=== PATIENT | male | born 1960 | race American Indian/Alaskan Native ===

== ENCOUNTER 2021-02-27 20:48 | Emergency (ER) | payer BC ==
[2021-02-27] MEDS ORDERED: SODIUM CHLORIDE 0.9% 500 ML 500 ML IV ONE (23:02)
--- NOTE | 2021-02-27 23:23 | XRay Report ---
CHEST - 1 VIEW INDICATION: Altered Mental Status COMPARISON: 10/08/2019 FINDINGS: SUPPORT DEVICES: Stable support device positioning. HEART: Stable cardiomediastinal silhouette. LUNGS/PLEURA: Clear lungs. ADDITIONAL FINDINGS: None. IMPRESSION: No acute abnormality. Signer Name: Felipe Alba MD Signed: 02/27/2021 11:19 PM Workstation Name: [id number]
[2021-02-28 00:21] LABS: Basophils % (Auto) 0.5 % (0.0-1.8); Eosinophils % (Auto) 0.1 % (0.0-4.3); Hemoglobin 13.2 gm/dl (11.8-15.2); Lymphocytes # (Auto) 0.9 K/mm3 (1.2-5.4); Lymphocytes % (Auto) 17.3 % (13.4-35.0); Mean Corpuscular HGB Conc 31 % (32-34); Mean Corpuscular Volume 82 fl (84-94); Monocytes # (Auto) 0.6 K/mm3 (0.0-0.8); Monocytes % (Auto) 11.7 % (0.0-7.3); Platelet Count 193 K/mm3 (140-440); Red Blood Count 5.15 M/mm3 (3.65-5.03); Red Cell Distribution Width 13.9 % (13.2-15.2)
[2021-02-28 00:42] LABS: Alanine Aminotransferase 25 units/L (7-56); Albumin 4.3 g/dL (3.9-5); BUN/Creatinine Ratio 14; Blood Urea Nitrogen 13 mg/dL (9-20); Calcium 8.8 mg/dL (8.4-10.2); Hemolysis Index 33
--- NOTE | 2021-02-28 00:53 | Cat Scan Report ---
CT head without contrast HISTORY: Altered Mental Status. TECHNIQUE: Axial imaging performed from the skull apex through the skull base without the use of con trast. All CT scans at this location are performed using CT dose reduction for ALARA by means of aut omated exposure control. COMPARISON: CT head from 10/07/2019 FINDINGS: Parenchyma: No acute intracranial hemorrhage or parenchymal abnormality. Ventricles: Right posterior parietal shunt again noted with tip terminating near the midline anterio rly. The degree of ventricular dilatation is similar to previous exams, as is periventricular hypoden sities. Soft tissues: Soft tissues including the orbits appear normal. Bones: No acute osseous abnormality. Sinuses: Sinuses and mastoid air cells are clear. IMPRESSION: No acute abnormality. Largely unchanged ventriculomegaly and shunt positioning. Signer Name: Felipe Alba MD Signed: 02/28/2021 12:48 AM Workstation Name: [id number]
[2021-02-28 04:18] LABS: Bilirubin,Urine NEG (Negative); Blood,Urine NEG (Negative); Color,Urine Yellow (Yellow); Mucus,Urine FEW /HPF; Protein,Urine <15 mg/dL mg/dL (Negative); Urobilinogen,Urine < 2.0 mg/dL (<2.0)
[2021-02-28 04:21] LABS: Amphetamine Screen,Urine PRESUMPTIVE NEGATIVE; Benzodiazepines Screen,Urine PRESUMPTIVE NEGATIVE; Cannabinoid Screen,Urine PRESUMPTIVE NEGATIVE; Cocaine Screen,Urine PRESUMPTIVE NEGATIVE; Methadone Screen,Urine PRESUMPTIVE NEGATIVE; Opiate Screen,Urine PRESUMPTIVE NEGATIVE
[2021-02-28] MEDS ORDERED: SODIUM CHLORIDE 0.9% 500 ML 500 ML IV ONE (04:29)
[2021-02-28 04:45] VITALS: BP 171/81
--- NOTE | 2021-02-28 05:18 | Emergency Department Report ---
ED General Adult HPI - General Chief complaint: Altered Mental Status Stated complaint: ALTERED MENTAL STATUS Time Seen by Provider: 02/27/21 22:59 Source: EMS Mode of arrival: Stretcher Limitations: Physical Limitation - History of Present Illness Initial comments: was brought in by EMS by his family for AMS, he has history of dementia but recently started getting worse, no falls no injuries, no fever no chets pain no sob -: days(s) Severity scale (0 -10): 0 - Related Data Home Medications Medication Instructions Recorded Confirmed Last Taken Budesonide/Formoterol Fumarate 10.2 gm IH PRN 10/07/19 10/08/19 Unknown [Symbicort 160-4.5 Mcg Inhaler] Ibuprofen [Motrin 800 MG tab] 800 mg PO Q8HR PRN 10/07/19 10/07/19 Unknown Metoprolol Xl [Metoprolol 50 mg PO QDAY 10/07/19 10/07/19 Unknown SUCCINATE ER TAB] Omeprazole 40 mg PO DAILY 10/07/19 10/07/19 Unknown AtorvaSTATin 10 mg PO HS 10/08/19 10/08/19 Unknown Previous Rx's Medication Instructions Recorded Last Taken Type levETIRAcetam [Keppra TAB] 750 mg PO BID #90 tablet 10/09/19 Unknown Rx Allergies Allergy/AdvReac Type Severity Reaction Status Date / Time No Known Allergies Allergy Verified 10/07/19 15:33 ED Review of Systems ROS: Stated complaint: ALTERED MENTAL STATUS Other details as noted in HPI Comment: Unobtainable due to pts medical conditions ED Past Medical Hx - Past Medical History Hx Hypertension: Yes Hx CVA: Yes (2014) Hx Seizures: Yes (1984) Additional medical history: encephalopathy. high cholesterol, pt has a [employer] shunt, clogged in 2012 and replaced - Surgical History Additional Surgical History: brain shunt - Social History Smoking Status: Former Smoker Substance Use Type: None - Medications Home Medications: Home Medications Medication Instructions Recorded Confirmed Last Taken Type Budesonide/Formoterol Fumarate 10.2 gm IH PRN 10/07/19 10/08/19 Unknown History [Symbicort 160-4.5 Mcg Inhaler] Ibuprofen [Motrin 800 MG tab] 800 mg PO Q8HR PRN 10/07/19 10/07/19 Unknown History Metoprolol Xl [Metoprolol 50 mg PO QDAY 10/07/19 10/07/19 Unknown History SUCCINATE ER TAB] Omeprazole 40 mg PO DAILY 10/07/19 10/07/19 Unknown History AtorvaSTATin 10 mg PO HS 10/08/19 10/08/19 Unknown History levETIRAcetam [Keppra TAB] 750 mg PO BID #90 tablet 10/09/19 Unknown Rx ED Physical Exam - General Limitations: Physical Limitation General appearance: in no apparent distress, other (dementia) - Head Head exam: Present: atraumatic, normocephalic - Eye Eye exam: Present: normal appearance - ENT ENT exam: Present: mucous membranes moist - Neck Neck exam: Present: normal inspection - Respiratory Respiratory exam: Present: normal lung sounds bilaterally. Absent: respiratory distress - Cardiovascular Cardiovascular Exam: Present: regular rate, normal rhythm. Absent: systolic murmur, diastolic murmur, rubs, gallop - GI/Abdominal GI/Abdominal exam: Present: soft, normal bowel sounds - Rectal Rectal exam: Present: deferred - Extremities Exam Extremities exam: Present: normal inspection - Back Exam Back exam: Present: normal inspection - Expanded Neurological Exam Expanded Neurological exam: Present: innattentive Best Eye Response ([place]): (4) open spontaneously Best Motor Response ([place]): (6) obeys commands Best Verbal Response ([place]): (3) inappropriate words [facility] Total: 13 - Skin Skin exam: Present: warm, dry, intact, normal color. Absent: rash ED Course Vital Signs 02/27/21 02/28/21 02/28/21 20:53 04:00 04:22 Temperature 98.5 F 98.0 F Pulse Rate 110 H 83 Respiratory 18 16 Rate Blood Pressure 186/82 180/104 [Left] O2 Sat by Pulse 99 99 98 Oximetry 02/28/21 04:44 Temperature Pulse Rate 87 Respiratory 16 Rate Blood Pressure 171/81 [Left] O2 Sat by Pulse 97 Oximetry - Reevaluation(s) Reevaluation #1: 02/28/21 05:15 work up is negative , vss , no dsitress , head ct normal UA is clear , seems like his dementia is attributing to his mentalk status , will d/c home ED Medical Decision Making - Lab Data Result diagrams: 02/27/21 23:40 02/27/21 23:40 Critical care attestation.: If time is entered above; I have spent that time in minutes in the direct care of this critically ill patient, excluding procedure time. ED Disposition Clinical Impression: Dementia Disposition: 01 HOME / SELF CARE / HOMELESS Is pt being admited?: No Does the pt Need Aspirin: No Condition: Stable Instructions: Dementia Caregiver Guide Referrals: ANA FREDERICK MD [Primary Care Provider] - 3-5 Days
== END 2021-02-28 07:00 | disposition home or self-care (01) ==
LOC: ED 20:48
DX: F03.90 Unspecified dementia, unspecified severity, without behavioral disturbance, psychotic disturbance, mood disturbance, and anxiety (principal); I10 Essential (primary) hypertension; Z87.891 Personal history of nicotine dependence; Z79.899 Other long term (current) drug therapy
CPT/HCPCS: 36415; 70450; 71045; 80053; 80307; 81001; 82140; 82550; 84484; 85025; 86850; 86900; 86901; 99285; J7040; 80320; G0480